=== PATIENT | female | born 1945 | race Caucasian/White ===

== ENCOUNTER 2018-07-15 08:01 | Day surgery (SDC) | payer OTHER, MEDICARE ==
[2018-07-14 14:06] VITALS: BMI 36.5
[2018-07-15 09:32] VITALS: TEMP 98.4
[2018-07-15 10:37] VITALS: BP 110/51; PULSE 61
--- NOTE | 2018-07-16 10:44 | PATH ---
Surgical Pathology Report Patient Name: CAROL PECK [facility]. Rec. #: [id number] /Age/Gender: 1945 (Age: 73) / F Account: [id number] Location: ASU-ENDOSCOPY Taken: 07/15/2018 Received: 07/15/2018 Reported: 07/16/2018 Physicians: Leonid Stacy M.D. Specimen(s) Received BX ILEOCECAL VALVE Clinical History Right lower quadrant pain, rule out colon cancer Postoperative diagnosis: Diverticulosis, ileocecal valve lipoma Final Diagnosis ILEOCECAL VALVE, BIOPSY, R/O LIPOMA: COLONIC MUCOSA WITH ACTIVE INFLAMMATION AND LYMPHOID AGGREGATE IN THE LAMINA PROPRIA. SOME MATURE ADIPOSE TISSUE PRESENT IN THE SUBMUCOSA, THIS MAY REPRESENT A SUBMUCOSAL LIPOMA IN A PROPER CLINICAL SETTING. CLINICAL CORRELATION RECOMMENDED. Electronically Signed Luisa Vicente M.D. Gross Description Received in formalin, labeled "biopsy ileocecal valve" are 3 burgos, irregular portions of soft tissue averaging 0.3 cm. in greatest dimension. The specimens are submitted in toto in one cassette. 07/15/2018 saudi07/15/2018
== END 2018-07-15 10:37 | disposition home or self-care (01) ==
LOC: JASU-ENDO 08:01
PROVIDERS: ATTEND Internal Medicine Gastroenterology
PROC: 0DBC8ZX Excision of Ileocecal Valve, Via Natural or Artificial Opening Endoscopic, Diagnostic (ICD-10-PCS; principal; 2018-07-15 09:00)
DX: Z12.11 Encounter for screening for malignant neoplasm of colon (principal); K57.30 Diverticulosis of large intestine without perforation or abscess without bleeding; K64.8 Other hemorrhoids; D17.5 Benign lipomatous neoplasm of intra-abdominal organs
CPT/HCPCS: 88305-TC